=== PATIENT | female | born 1965 | race American Indian/Alaskan Native ===

== ENCOUNTER 2016-10-22 12:16 | Emergency (ER) | payer SELFPAY ==
[2016-10-22 13:25] VITALS: BP 170/110
--- NOTE | 2016-10-22 20:51 | Emergency Department Report ---
Entered by AMEENA REDMAN, acting as scribe for CHRISSIE COLLINS NP. - General Chief complaint: Skin/Abscess/Foreign Body Stated complaint: SWOLLEN FOREHEAD/W BIG BUMP EFF RT EYE Time Seen by Provider: 10/22/16 13:51 Source: patient Mode of arrival: Ambulatory Limitations: No Limitations - History of Present Illness Initial comments: 51 y/o female with no significant PMHx, presents to the ED c/o right side forehead area swelling beginning 2 days ago. She states that she had a "pea- sized" swelling for years previously, but states the swelling in the area began increasing as time went by and now 2 days ago become worse. The patient states that she often gets similar areas of swelling and "cysts", and states that she is under an increased amount of emotional stress lately. Associated symptoms of tenderness in the affected area, but she denies visual changes, headache, facial numbness, chest pain, SOB, painful ROM of the right eye, and drainage from the affected area. MD complaint: other (swelling on the right forehead area) -: days(s) (2 ) Location: face (right forehead area) Severity: mild Severity scale (0 -10): 2 Consistency: constant Improves with: none Worsens with: palpation Context: other (patient states that she get similar areas of swelling and cysts often) Associated symptoms: other (right eye area swelling, tenderness over the right forehead. Denies drainage from the area, visual changes, chest pain, SOB, and headache) Treatments Prior to Arrival: none - Related Data Home Medications Medication Instructions Recorded Confirmed Last Taken Aspirin [Adult Low Dose Aspirin EC] 81 mg PO QDAY 10/22/16 10/22/16 10/21/16 09: 00 Previous Rx's Medication Instructions Recorded Last Taken Type Sulfamethoxazole/Trimethoprim 1 each PO BID 5 Days 10/22/16 Unknown Rx [Bactrim DS TAB] Allergies Allergy/AdvReac Type Severity Reaction Status Date / Time codeine AdvReac Hives Verified 10/22/16 13:16 Abscess Boil HPI - HPI Chief Complaint: Skin/Abscess/Foreign Body Stated Complaint: SWOLLEN FOREHEAD/W BIG BUMP EFF RT EYE Time Seen by Provider: 10/22/16 13:51 History: Yes Pain (right sided forhead), Yes Previous History (right sided forhead), No Fever, No Purulent Drainage, No Numbness, No Foreign Body, No Insect Bite Home Medications: Home Medications Medication Instructions Recorded Confirmed Last Taken Aspirin [Adult Low Dose Aspirin EC] 81 mg PO QDAY 10/22/16 10/22/16 10/21/16 09: 00 Previous Rx's Medication Instructions Recorded Last Taken Type Sulfamethoxazole/Trimethoprim 1 each PO BID 5 Days 10/22/16 Unknown Rx [Bactrim DS TAB] Allergies/Adverse Reactions: Allergies Allergy/AdvReac Type Severity Reaction Status Date / Time codeine AdvReac Hives Verified 10/22/16 13:16 ED Review of Systems Comment: All other systems reviewed and negative Constitutional: denies: chills, fever Eyes: denies: vision change ENT: other (occasional right eye area swelling, but denies painful ROM of the right eye) Respiratory: denies: shortness of breath Cardiovascular: denies: chest pain Endocrine: no symptoms reported Gastrointestinal: denies: abdominal pain, nausea, diarrhea Genitourinary: denies: urgency, dysuria, discharge Musculoskeletal: denies: back pain, joint swelling, arthralgia Skin: other (right forehead area swelling and tenderness, denies drainage from area) Neurological: denies: headache, numbness (facial) Psychiatric: denies: anxiety, depression Hematological/Lymphatic: denies: easy bleeding, easy bruising ED Past Medical Hx - Past Medical History Additional medical history: "HEART PALPITATIONS" - Surgical History Additional Surgical History: TUBAL LIGATION - Social History Smoking Status: Current Every Day Smoker Substance Use Type: None - Medications Home Medications: Home Medications Medication Instructions Recorded Confirmed Last Taken Type Aspirin [Adult Low Dose Aspirin EC] 81 mg PO QDAY 10/22/16 10/22/16 10/21/16 09: 00 History Sulfamethoxazole/Trimethoprim 1 each PO BID 5 Days 10/22/16 Unknown Rx [Bactrim DS TAB] ED Physical Exam - General Limitations: No Limitations General appearance: alert, in no apparent distress - Head Head exam: Present: atraumatic, other (noted is a right forehead area swelling that is 3 cm in size, firm, tender to palpation, consistent with cyst. No erythema, no active drainage from the area, no signs of fluctuance) - Eye Eye exam: Present: normal appearance, EOMI. Absent: periorbital swelling, periorbital tenderness - ENT ENT exam: Present: normal exam, normal orophraynx, TM's normal bilaterally, normal external ear exam - Neck Neck exam: Present: normal inspection, full ROM. Absent: tenderness - Respiratory Respiratory exam: Present: normal lung sounds bilaterally. Absent: respiratory distress, wheezes, rales, rhonchi, stridor - Cardiovascular Cardiovascular Exam: Present: regular rate, normal rhythm, normal heart sounds. Absent: systolic murmur, diastolic murmur, rubs, gallop - GI/Abdominal GI/Abdominal exam: Present: soft. Absent: distended, tenderness - Extremities Exam Extremities exam: Present: normal inspection, full ROM, normal capillary refill - Back Exam Back exam: Present: normal inspection, full ROM. Absent: tenderness, CVA tenderness (R), CVA tenderness (L) - Neurological Exam Neurological exam: Present: alert, oriented X3, CN II-XII intact, normal gait - Psychiatric Psychiatric exam: Present: normal affect, normal mood - Skin Skin exam: Present: warm, dry, intact, other (3 cm right forehead area swelling , firm, consistent with cyst, no active drainage, no fluctuance, tender to palpation) ED Course Vital Signs 10/22/16 13:21 Temperature 97.5 F L Pulse Rate 79 Respiratory 18 Rate Blood Pressure 170/110 O2 Sat by Pulse 100 Oximetry ED Medical Decision Making - Medical Decision Making Ed course: 51-year-old female that presents with a 3cm cyst to the forehead 1- At this time the patient does not seem toxic or ill appearance. no signs of any distress noted. 2- I instructed the patient to follow-up with a PCP and/or general surgery to get the cyst removed. 3- This is a chronic condition as per patient and patient stated will follow-up with a PCP or clinic of the cyst. 4- patient agrees to discharge plan. No further questions noted at this time. ED Disposition Clinical Impression: Cyst Disposition: DISCHARGED TO HOME OR SELFCARE Is pt being admited?: No Does the pt Need Aspirin: No Condition: Stable Instructions: Tramadol (By mouth) Additional Instructions: Please follow-up with your PCP in 3-5 days. If symptoms worsen such as eye pain, Visual changes, uncontrollable pain, headache report back to emergency room. Take antibiotics as prescribed. Prescriptions: Sulfamethoxazole/Trimethoprim [Bactrim DS TAB] 1 each PO BID 5 Days Referrals: PRIMARY CARE,MD [Primary Care Provider] - 3-5 Days [facility] [Outside] - 3-5 Days [facility] [Outside] - 3-5 Days [facility] [Outside] - 3-5 Days This documentation as recorded by the [id number] blankenship GRACE,accurately reflects the service I personally performed and the decisions made by me,CHRISSIE COLLINS, W[employer] OPERATOR.
== END 2016-10-22 14:31 | disposition home or self-care (01) ==
LOC: ED 12:16
DX: R22.0 Localized swelling, mass and lump, head (principal); F17.200 Nicotine dependence, unspecified, uncomplicated; Z88.8 Allergy status to other drugs, medicaments and biological substances
CPT/HCPCS: 99282

== ENCOUNTER 2018-03-18 19:34 | Emergency (ER) | payer SELFPAY ==
[2018-03-18 19:53] VITALS: BP 155/100
[2018-03-18 21:09] LABS: Basophils # (Auto) 0.1 K/mm3 (0.0-0.1); Basophils % (Auto) 0.6 % (0.0-1.8); Eosinophils # (Auto) 0.1 K/mm3 (0.0-0.4); Eosinophils % (Auto) 0.7 % (0.0-4.3); Hematocrit 39.6 % (30.3-42.9); Hemoglobin 13.3 gm/dl (10.1-14.3); Lymphocytes # (Auto) 3.8 K/mm3 (1.2-5.4); Lymphocytes % (Auto) 40.6 % (13.4-35.0); Mean Corpuscular HGB Conc 34 % (30-34); Mean Corpuscular Hemoglobin 31 pg (28-32); Mean Corpuscular Volume 92 fl (79-97); Monocytes # (Auto) 0.5 K/mm3 (0.0-0.8); Monocytes % (Auto) 5.1 % (0.0-7.3); Platelet Count 262 K/mm3 (140-440); Red Cell Distribution Width 13.3 % (13.2-15.2)
[2018-03-19 00:21] LABS: BUN/Creatinine Ratio 11; Blood Urea Nitrogen 8 mg/dL (7-17); Calcium 9.3 mg/dL (8.4-10.2); Hemolysis Index 8
== END 2018-03-18 22:34 | disposition left against medical advice (07) ==
LOC: ED 19:34
DX: R07.89 Other chest pain (principal); Z53.21 Procedure and treatment not carried out due to patient leaving prior to being seen by health care provider
CPT/HCPCS: 36415; 80048; 84484; 85025; 93005; 93010